=== PATIENT | female | born 1965 | race Caucasian/White ===

== ENCOUNTER 2018-07-20 10:41 | Emergency (ER) | payer MEDICAID ==
[~2018-07-20] VITALS: Ht 147.3 cm; Wt 98.0 kg
[~2018-07-20 10:41] MED LIST: ALPR-624 PO; ATROVENT HFA NEB; CYCL-1 PO; LEVO137T2 PO; LISI40TA4 PO; OXYC30TA88 PO; OXYGEN; SERT50TA PO; TEMA30CA5 PO; TRIA15CR61 TP; [UNRECOGNIZED DRUG - CODE] PO
[2018-07-20 11:01] VITALS: BP 175/88
[2018-07-20] MEDS ORDERED: GABA-532 PO (11:44)
[2018-07-20] MEDS ORDERED: ONDA4TAB6 PO (11:44)
== END 2018-07-20 11:58 | disposition home or self-care (01) ==
LOC: ER 10:41
DX: F11.20 Opioid dependence, uncomplicated (principal); Z76.0 Encounter for issue of repeat prescription; I10 Essential (primary) hypertension; J44.9 Chronic obstructive pulmonary disease, unspecified
CPT/HCPCS: 99283

== ENCOUNTER 2019-06-20 17:21 | Emergency (ER) | payer MEDICAID ==
[~2019-06-20] VITALS: Ht 147.3 cm; Wt 97.7 kg
[~2019-06-20 17:21] MED LIST changes: +GABA-532 PO; +ONDA4TAB6 PO
[2019-06-20 17:29] VITALS: BP 142/92
[2019-06-20] MEDS ORDERED: ipratropium/albuterol 3ml nebule NEB ONE (17:40)
[2019-06-20] MEDS ORDERED: methylPREDNISolone sod succ 125mg/2ml vial IV ONE (17:40)
[2019-06-20] MEDS ORDERED: AZIT250T81 PO (17:47)
[2019-06-20] MEDS ORDERED: PRED10TA23 PO (17:47)
== END 2019-06-20 18:43 | disposition home or self-care (01) ==
LOC: ER 17:22
DX: J44.1 Chronic obstructive pulmonary disease with (acute) exacerbation (principal); I10 Essential (primary) hypertension; Z79.899 Other long term (current) drug therapy
CPT/HCPCS: 94640; 96374; 99283; J2930; 94760

== ENCOUNTER 2020-03-22 18:29 | Inpatient (IN) | payer MEDICAID ==
[~2020-03-22] VITALS: Ht 162.6 cm; Wt 100.0 kg
[~2020-03-22 18:29] MED LIST changes: +OXYC30TA PO; -OXYC30TA88 PO
[2020-03-22] MEDS ORDERED: normal saline 1000ML IV soln IVB ONE (18:50)
--- NOTE | 2020-03-22 19:26 | NUR ---
[facility] [phone]
[2020-03-22 19:30] LABS: ABG BASE EXCESS -3.1 mmol/L (-2.0-2.0); ABG HCO3 24.8 mmol/L (22.0-26.0); ABG OXYGEN SATURATION 91.4 % (94-97); ABG PCO2 (T) 59.4 mmHg (32.0-45.0); ABG PO2 (T) 68.9 mmHg (75.0-100.0); ALLEN'S TEST POSITIVE; FCOHb 3.4 % (0.0-3.9); FLOW 8 L/min; FMetHb 0.2 % (0.0-1.5); FO2Hb 88.1 % (94-97); PATIENT TEMPERATURE 38.1; TOTAL HEMOGLOBIN 13.8 G/dl (12.0-16.0)
[2020-03-22 19:49] LABS: BASOPHILS # (AUTO) 0.1 X10'3 (0-0.2); BASOPHILS % (AUTO) 0.7 % (0-1); EOSINOPHILS % (AUTO) 0 % (0-6); HEMATOCRIT 40.5 % (35.0-45.0); HEMOGLOBIN 13.3 g/dl (12.0-16.0); LYMPHOCYTES # (AUTO) 1.7 X10'3 (1.1-4.8); LYMPHOCYTES % (AUTO) 10.9 % (21-51); MEAN CORPUSCULAR HEMOGLOBIN 31.1 PG (27.0-31.0); MEAN CORPUSCULAR HGB CONC 32.8 g/dL (33.0-36.5); MEAN CORPUSCULAR VOLUME 94.8 FL (78-98); MEAN PLATELET VOLUME 7.8 FL (7.4-10.4); MONOCYTES % (AUTO) 6.2 % (2-12); NEUTROPHILS # (AUTO) 12.7 X10'3 (1.8-7.7); NEUTROPHILS % (AUTO) 82.2 % (42-75); PLATELET COUNT 256 X10'3 (140-440); RED BLOOD COUNT 4.27 X10'6 (4.20-5.60); RED CELL DISTRIBUTION WIDTH 14.8 % (11.5-14.5); WHITE BLOOD COUNT 15.4 X10'3 (4.5-11.0)
[2020-03-22 19:54] LABS: D-DIMER 1.44 MG/L FEU (0-0.50)
[2020-03-22 19:57] LABS: LACTIC SEPSIS 1.6 MMOL/L (0.4-2.0)
[2020-03-22 20:07] LABS: ALANINE AMINOTRANSFERASE 173 U/L (12-78); ALBUMIN 3.6 G/DL (3.4-5.0); ALBUMIN/GLOBULIN RATIO 0.8 (1.1-1.5); ALKALINE PHOSPHATASE 135 IU/L (46-116); ANION GAP 7 (8-16); ASPARTATE AMINO TRANSFERASE 252 U/L (10-37); BILIRUBIN,TOTAL 0.3 MG/DL (0.1-1.0); BLOOD UREA NITROGEN 35 MG/DL (7-18); BUN/CREATININE RATIO 14.3 (6.6-38.0); CALCIUM 9.3 MG/DL (8.5-10.1); CHLORIDE 104 MMOL/L (99-107); CREATININE 2.45 MG/DL (0.40-0.90); FERRITIN 318 NG/ML (8-252); GLUCOSE 170 MG/DL (70-104); LACTATE DEHYDROGENASE 453 U/L (81-234); SODIUM 140 MMOL/L (135-145); TOTAL PROTEIN 8.4 G/DL (6.4-8.2); eGFR 20 ML/MIN
[2020-03-22] MEDS ORDERED: iohexol 350MG/ML 100ml bottle IV ONE (20:07)
[2020-03-22 20:12] LABS: ETHANOL < 0.010 GM/DL (0.0-0.010); POTASSIUM 6.2 MMOL/L (3.5-5.1)
[2020-03-22] MEDS ORDERED: insulin regular, human U-100 3ml vial - multi-dose IV ONE (20:20)
[2020-03-22] MEDS ORDERED: CALCIUM GLUC 1gm/50ml NACL,iso 50 ML IV ONE (20:20)
[2020-03-22] MEDS ORDERED: dextrose 50%-water 50ml dispensing syringe IV ONE (20:20)
[2020-03-22 20:30] LABS: CLARITY,URINE CLEAR (Clear); COLOR,URINE YELLOW (Yellow); GLUCOSE, URINE NEGATIVE (Neg); KETONES,URINE NEGATIVE (Neg); LEUKOCYTE ESTERASE ,URINE NEGATIVE (Neg); NITRITES, URINE NEGATIVE (Neg); OCCULT BLOOD,URINE LARGE (Neg); PH,URINE 5.5 (4.8-8.0); PROTEIN,URINE 30 mg/dl (Neg); UROBILINOGEN,URINE 0.2 E.U/dL (0.2-1.0)
[2020-03-22 20:38] LABS: UA COLLECTION TYPE FOLEY CATH
[2020-03-22 20:39] LABS: BACTERIA,URINE FEW /HPF (Neg); MUCUS STRANDS FEW /LPF (Neg); SQUAMOUS EPITHELIAL CELL,UR FEW /LPF (FEW); WBC,URINE 0-4 /HPF (0-4)
[2020-03-22 20:48] LABS: URINE AMPHETAMINE SCREEN NEGATIVE (Neg); URINE BARBITUATE SCREEN NEGATIVE (Neg); URINE BENZODIAZEPINES SCREEN NEGATIVE (Neg); URINE CANNABINOID SCREEN NEGATIVE (Neg); URINE COCAINE SCREEN NEGATIVE (Neg); URINE METHADONE SCREEN NEGATIVE (Neg); URINE OPIATE SCREEN POSITIVE (Neg); URINE PHENCYCLIDINE SCREEN NEGATIVE (Neg)
[2020-03-22 22:05] LABS: ABG BASE EXCESS -2.7 mmol/L (-2.0-2.0); ABG HCO3 25.9 mmol/L (22.0-26.0); ABG OXYGEN SATURATION 87.6 % (94-97); ABG PCO2 (T) 63.4 mmHg (32.0-45.0); ABG PO2 (T) 58.1 mmHg (75.0-100.0); ALLEN'S TEST POSITIVE; FLOW 4 L/min; FMetHb 0.1 % (0.0-1.5); FO2Hb 85.8 % (94-97); PATIENT TEMPERATURE 37.2; TOTAL HEMOGLOBIN 13.4 G/dl (12.0-16.0)
[2020-03-22] MEDS ORDERED: ondansetron/PF 4mg/2ml inj IV PRN (22:20)
[2020-03-22] MEDS ORDERED: normal saline 1000ml 1,000 ML IV SCH (22:20)
[2020-03-22 22:46] LABS: HEMOGLOBIN A1C 6.5 % (4.5-6.2)
[2020-03-22] MEDS: enoxaparin 40mg/0.4ml syringe SUBCUT SCH (23:10)
[2020-03-22] MEDS ORDERED: ALB0.5UD INH (23:33)
[2020-03-22] MEDS ORDERED: HYDR4TAB55 PO (23:33)
[2020-03-22] MEDS ORDERED: LOSA100T57 PO (23:33)
[2020-03-22] MEDS ORDERED: ASPI-1475 PO (23:33)
[2020-03-22] MEDS ORDERED: LEVO125T8 PO (23:33)
[2020-03-22] MEDS ORDERED: MORP-92 PO (23:33)
[2020-03-22] MEDS ORDERED: UMEC1DIS (23:33)
[2020-03-22] MEDS ORDERED: HYDR12.55 PO (23:33)
[2020-03-22] MEDS ORDERED: HYDR-3686 PO (23:33)
[2020-03-23] VITALS (8 sets, daily range): BP systolic 111–161; BP diastolic 53–100
[2020-03-23] MEDS ORDERED: acetaminophen 650mg rectal suppository RC ONE (00:30)
[2020-03-23] MEDS ORDERED: glucagon, human recombinant 1mg kit SUBCUT PRN (00:30)
[2020-03-23] MEDS ORDERED: MESSAGE TO PHARMACY PO ONE (00:30)
--- NOTE | 2020-03-23 00:30 | NUR ---
Patient in room PCU 3026. I have received report from Jerson SMITH and had the opportunity to ask questions and assume patient care.
[2020-03-23] MEDS: morphine 2 MG/ML inj. syringe IV PRN ×5 (05:43→19:55)
--- NOTE | 2020-03-23 05:45 | NUR ---
Patient needs sitter Patient is very impulsive, forgetful, and a danger to herself (pulling ortega, iv, bipap mask). MD Prakash called and received an order for sitter and to give 4mg Morphine if its time.
[2020-03-23 06:04] LABS: BASOPHILS # (AUTO) 0.1 X10'3 (0-0.2); BASOPHILS % (AUTO) 0.6 % (0-1); EOSINOPHILS % (AUTO) 0 % (0-6); HEMOGLOBIN 12.3 g/dl (12.0-16.0); LYMPHOCYTES # (AUTO) 2.1 X10'3 (1.1-4.8); LYMPHOCYTES % (AUTO) 12.1 % (21-51); MEAN CORPUSCULAR HEMOGLOBIN 30.5 PG (27.0-31.0); MEAN CORPUSCULAR HGB CONC 32.5 g/dL (33.0-36.5); MEAN CORPUSCULAR VOLUME 93.9 FL (78-98); MEAN PLATELET VOLUME 8.5 FL (7.4-10.4); MONOCYTES # (AUTO) 1.4 X10'3 (0-0.9); MONOCYTES % (AUTO) 8.1 % (2-12); NEUTROPHILS # (AUTO) 13.9 X10'3 (1.8-7.7); NEUTROPHILS % (AUTO) 79.2 % (42-75); PLATELET COUNT 230 X10'3 (140-440); RED BLOOD COUNT 4.04 X10'6 (4.20-5.60); RED CELL DISTRIBUTION WIDTH 14.6 % (11.5-14.5); WHITE BLOOD COUNT 17.6 X10'3 (4.5-11.0)
[2020-03-23 06:28] LABS: ALANINE AMINOTRANSFERASE 210 U/L (12-78); ALBUMIN 3.2 G/DL (3.4-5.0); ALBUMIN/GLOBULIN RATIO 0.8 (1.1-1.5); ALKALINE PHOSPHATASE 119 IU/L (46-116); ANION GAP 8 (8-16); ASPARTATE AMINO TRANSFERASE 368 U/L (10-37); BILIRUBIN,TOTAL 0.7 MG/DL (0.1-1.0); BLOOD UREA NITROGEN 32 MG/DL (7-18); BUN/CREATININE RATIO 19.6 (6.6-38.0); CALCIUM 9.7 MG/DL (8.5-10.1); CHLORIDE 108 MMOL/L (99-107); CHOL/HDL RATIO 3.5 (0.00-4.99); CHOLESTEROL 218 MG/DL (0-200); CREATININE 1.63 MG/DL (0.40-0.90); GLUCOSE 156 MG/DL (70-104); HDL CHOLESTEROL 63 MG/DL (35-60); LDL CHOLESTEROL 139 MG/DL (50-100); POTASSIUM 4.7 MMOL/L (3.5-5.1); SODIUM 142 MMOL/L (135-145); TOTAL CARBON DIOXIDE 26.2 MMOL/L (24-32); TOTAL PROTEIN 7.4 G/DL (6.4-8.2); TRIGLYCERIDES 127 MG/DL (20-135); eGFR 33 ML/MIN
--- NOTE | 2020-03-23 06:32 | NUR ---
Problems reprioritized. Patient report given, questions answered & plan of care reviewed with Kavya SMITH.
--- NOTE | 2020-03-23 06:42 | NUR ---
Patient in room PCU 3026. I have received report from LUIS Chen and had the opportunity to ask questions and assume patient care.
[2020-03-23] MEDS ORDERED: albuterol 2.5 MG/3 ML nebule NEB SCH (08:00)
[2020-03-23] MEDS ORDERED: potassium CL 10mEq/100ml bag 100 ML IV PRN (09:20)
[2020-03-23] MEDS ORDERED: magnesium 4gm in 100ml NS 100 ML IV PRN (09:20)
[2020-03-23] MEDS ORDERED: potassium Cl 20 mEq SR tablet PO PRN (09:20)
[2020-03-23] MEDS ORDERED: magnesium Cl slow-release 64mg tablet PO PRN (09:20)
[2020-03-23] MEDS ORDERED: levoTHYROXINE 125mcg tablet PO SCH (09:20)
[2020-03-23] MEDS: enoxaparin 40mg/0.4ml syringe SUBCUT SCH ×2 (09:40→19:44)
[2020-03-23] MEDS: atorvastatin 20mg tablet PO SCH (09:41)
[2020-03-23] MEDS: losartan 50mg tablet PO SCH (09:41)
[2020-03-23] MEDS: HYDROchlorothiazide 12.5mg capsule PO SCH (09:42)
[2020-03-23] MEDS: aspirin 81mg tablet.DR PO SCH (09:42)
[2020-03-23 10:20] LABS: MAGNESIUM 2.1 MG/DL (1.5-2.4)
--- NOTE | 2020-03-23 10:48 | NUR ---
Shady consult: Pt admitted with ALOC and was admit with CVA per H&P. Noted Shady of 11 pt documented with psoriasis on bilateral elbows, under bilateral breasts and under pannus along with blanchable sacrum per skin assessment, no apparent wounds. No [facility] assessment consult ordered at this time. Pt on pureed diet per [facility] s/p BSS, no documented intake since admit. Will continue to monitor for nutrient needs. Addendum: 03/23/20 at [address] Amended: Links added. Addendum: 03/23/20 at [address] I have reviewed and agree with note by Cell Installer. Philly Michael RD
[2020-03-23] MEDS: gabapentin 300mg capsule PO SCH ×2 (13:00→20:17)
--- NOTE | 2020-03-23 13:51 | NUR ---
Patient to go to [facility] for MRI. Will be accompanied by an RN and a tech and to transport by [facility]. Will be on nasal cannula 4L and O2 observed by RN.
--- NOTE | 2020-03-23 18:47 | NUR ---
Problems reprioritized. Patient report given, questions answered & plan of care reviewed with LUIS Chen.
[2020-03-23] MEDS: K and/or MAG REPLACEMENT MC SCH (20:00)
[2020-03-23] MEDS: NYSTATIN CREAM - 30GM TUBE TP SCH (20:09)
[2020-03-23] MEDS ORDERED: methylPREDNISolone sod succ 125mg/2ml vial IV ONE (22:25)
[2020-03-23] MEDS: ipratropium/albuterol 3ml nebule NEB SCH (23:43)
[2020-03-24] MEDS: methylPREDNISolone sod succ 125mg/2ml vial IV SCH ×4 (01:58→19:43)
[2020-03-24] MEDS: morphine 2 MG/ML inj. syringe IV PRN ×5 (01:59→21:57)
[2020-03-24 02:00] VITALS: BP 136/57
[2020-03-24] MEDS: ipratropium/albuterol 3ml nebule NEB SCH ×6 (04:03→23:36)
[2020-03-24 05:33] LABS: ANION GAP 4 (8-16); BLOOD UREA NITROGEN 21 MG/DL (7-18); BUN/CREATININE RATIO 21.4 (6.6-38.0); CHLORIDE 104 MMOL/L (99-107); CREATININE 0.98 MG/DL (0.40-0.90); GLUCOSE 192 MG/DL (70-104); POTASSIUM 4.5 MMOL/L (3.5-5.1); SODIUM 139 MMOL/L (135-145); TOTAL CARBON DIOXIDE 30.8 MMOL/L (24-32)
[2020-03-24 05:34] LABS: ALANINE AMINOTRANSFERASE 159 U/L (12-78); ALBUMIN 2.9 G/DL (3.4-5.0); ALBUMIN/GLOBULIN RATIO 0.6 (1.1-1.5); ALKALINE PHOSPHATASE 116 IU/L (46-116); ASPARTATE AMINO TRANSFERASE 214 U/L (10-37); BILIRUBIN,TOTAL 0.7 MG/DL (0.1-1.0); CALCIUM 8.8 MG/DL (8.5-10.1); PHOSPHORUS 1.8 MG/DL (2.3-4.5); TOTAL PROTEIN 7.6 G/DL (6.4-8.2); eGFR 59 ML/MIN
[2020-03-24 05:36] LABS: BASOPHILS % (AUTO) 0.3 % (0-1); EOSINOPHILS % (AUTO) 0 % (0-6); HEMATOCRIT 38.3 % (35.0-45.0); HEMOGLOBIN 12.4 g/dl (12.0-16.0); LYMPHOCYTES % (AUTO) 6.4 % (21-51); MEAN CORPUSCULAR HEMOGLOBIN 29.8 PG (27.0-31.0); MEAN CORPUSCULAR HGB CONC 32.4 g/dL (33.0-36.5); MEAN CORPUSCULAR VOLUME 91.9 FL (78-98); MEAN PLATELET VOLUME 8.3 FL (7.4-10.4); MONOCYTES # (AUTO) 0.3 X10'3 (0-0.9); MONOCYTES % (AUTO) 1.9 % (2-12); NEUTROPHILS # (AUTO) 14.5 X10'3 (1.8-7.7); NEUTROPHILS % (AUTO) 91.4 % (42-75); PLATELET COUNT 221 X10'3 (140-440); RED BLOOD COUNT 4.16 X10'6 (4.20-5.60); RED CELL DISTRIBUTION WIDTH 14.3 % (11.5-14.5); WHITE BLOOD COUNT 15.8 X10'3 (4.5-11.0)
[2020-03-24 06:00] VITALS: BP 127/57
--- NOTE | 2020-03-24 06:19 | NUR ---
Problems reprioritized. Patient report given, questions answered & plan of care reviewed with LUIS Hoff.
--- NOTE | 2020-03-24 06:29 | NUR ---
Patient in room PCU 3026. I have received report from LUIS Christensen and had the opportunity to ask questions and assume patient care.
[2020-03-24] MEDS ORDERED: levoTHYROXINE 100mcg tablet PO SCH (07:30)
[2020-03-24] MEDS: enoxaparin 40mg/0.4ml syringe SUBCUT SCH ×2 (07:35→19:44)
[2020-03-24] MEDS: aspirin 81mg tablet.DR PO SCH (07:36)
[2020-03-24] MEDS: losartan 50mg tablet PO SCH (07:37)
[2020-03-24] MEDS: gabapentin 300mg capsule PO SCH ×2 (07:38→12:37)
[2020-03-24] MEDS: HYDROchlorothiazide 12.5mg capsule PO SCH (07:38)
[2020-03-24] MEDS: atorvastatin 20mg tablet PO SCH (07:38)
[2020-03-24 07:42] LABS: HIV ANTIBODY 1&2 RAPID NON-REACTIVE (Neg)
[2020-03-24] MEDS: K and/or MAG REPLACEMENT MC SCH ×2 (08:00→20:00)
[2020-03-24] MEDS: NYSTATIN CREAM - 30GM TUBE TP SCH ×2 (08:00→19:44)
[2020-03-24] MEDS ORDERED: furosemide 40mg/4ml inj IV ONE (10:30)
[2020-03-24] MEDS: spironolactone 25 MG tablet PO SCH (12:38)
[2020-03-24] MEDS: insulin Lispro (HumaLOG) vial - multi-dose SQ SCH ×2 (13:31→19:46)
--- NOTE | 2020-03-24 14:12 | NUR ---
PAGER ID: [phone] MESSAGE: Deanna Shad [phone] her phos is 1.8, no replacement ordered, do you want me to replace? [facility] [phone]
[2020-03-24] MEDS ORDERED: sodium phosphate inj. 30 MMOL in dextrose 5%-water 250 ML IV ONE (14:30)
[2020-03-24 15:56] LABS: ABG BASE EXCESS 9.5 mmol/L (-2.0-2.0); ABG HCO3 32.7 mmol/L (22.0-26.0); ABG OXYGEN SATURATION 94.7 % (94-97); ABG PO2 (T) 64.6 mmHg (75.0-100.0); ALLEN'S TEST POSITIVE; FCOHb 0.4 % (0.0-3.9); FLOW 7 L/min; FMetHb 0.1 % (0.0-1.5); FO2Hb 94.2 % (94-97); TOTAL HEMOGLOBIN 14.5 G/dl (12.0-16.0)
[2020-03-24 18:00] VITALS: BP 135/72
[2020-03-24] MEDS: azithromycin/NS 500mg/250ml 250 ML IV SCH (18:58)
--- NOTE | 2020-03-24 19:03 | NUR ---
Problems reprioritized. Patient report given, questions answered & plan of care reviewed with Amparo SIMTH.
[2020-03-24] MEDS ORDERED: iohexol 350MG/ML 100ml bottle IV ONE (19:14)
[2020-03-24] MEDS: gabapentin 400mg capsule PO SCH (19:43)
[2020-03-24] MEDS: furosemide 40mg/4ml inj IV SCH (19:43)
[2020-03-24] MEDS ORDERED: enoxaparin 60mg/0.6ml syringe SUBCUT ONE (20:45)
--- NOTE | 2020-03-24 21:09 | NUR ---
Pt had teleneuro consult with Dr. Knapp. Pt was able to answer the questions the neurologist asked with clear speech. She was able to follow commands when asked.
[2020-03-24] MEDS: CefTRIAXone/D5W-Rocephin 1gm 50 ML IV SCH (21:58)
[2020-03-24 22:00] VITALS: BP 96/70
[2020-03-25] MEDS: methylPREDNISolone sod succ 125mg/2ml vial IV SCH ×4 (01:03→19:24)
[2020-03-25 02:00] VITALS: BP 101/52
[2020-03-25] MEDS: ipratropium/albuterol 3ml nebule NEB SCH ×6 (03:19→23:27)
[2020-03-25 06:00] VITALS: BP 115/87
[2020-03-25 06:01] LABS: BASOPHILS % (AUTO) 0.2 % (0-1); EOSINOPHILS % (AUTO) 0 % (0-6); HEMATOCRIT 42.5 % (35.0-45.0); HEMOGLOBIN 14.2 g/dl (12.0-16.0); LYMPHOCYTES # (AUTO) 1.3 X10'3 (1.1-4.8); LYMPHOCYTES % (AUTO) 8.1 % (21-51); MEAN CORPUSCULAR HEMOGLOBIN 30.6 PG (27.0-31.0); MEAN CORPUSCULAR HGB CONC 33.4 g/dL (33.0-36.5); MEAN CORPUSCULAR VOLUME 91.6 FL (78-98); MEAN PLATELET VOLUME 8.2 FL (7.4-10.4); MONOCYTES # (AUTO) 0.9 X10'3 (0-0.9); MONOCYTES % (AUTO) 5.6 % (2-12); NEUTROPHILS # (AUTO) 14.3 X10'3 (1.8-7.7); NEUTROPHILS % (AUTO) 86.1 % (42-75); PLATELET COUNT 268 X10'3 (140-440); RED BLOOD COUNT 4.64 X10'6 (4.20-5.60); RED CELL DISTRIBUTION WIDTH 13.8 % (11.5-14.5); WHITE BLOOD COUNT 16.6 X10'3 (4.5-11.0)
--- NOTE | 2020-03-25 06:21 | NUR ---
Patient in room PCU 3026. I have received report from LUIS Fleming and had the opportunity to ask questions and assume patient care.
--- NOTE | 2020-03-25 06:28 | NUR ---
Problems reprioritized. Patient report given, questions answered & plan of care reviewed with LUIS Villar.
[2020-03-25 06:35] LABS: ALANINE AMINOTRANSFERASE 132 U/L (12-78); ALBUMIN 3.2 G/DL (3.4-5.0); ALBUMIN/GLOBULIN RATIO 0.6 (1.1-1.5); ALKALINE PHOSPHATASE 115 IU/L (46-116); ANION GAP 11 (8-16); ASPARTATE AMINO TRANSFERASE 140 U/L (10-37); BILIRUBIN,TOTAL 0.6 MG/DL (0.1-1.0); BLOOD UREA NITROGEN 30 MG/DL (7-18); BUN/CREATININE RATIO 26.1 (6.6-38.0); CALCIUM 9.1 MG/DL (8.5-10.1); CHLORIDE 96 MMOL/L (99-107); CREATININE 1.15 MG/DL (0.40-0.90); GLUCOSE 205 MG/DL (70-104); MAGNESIUM 2.1 MG/DL (1.5-2.4); PHOSPHORUS 3.1 MG/DL (2.3-4.5); SODIUM 141 MMOL/L (135-145); TOTAL CARBON DIOXIDE 33.6 MMOL/L (24-32); TOTAL PROTEIN 8.3 G/DL (6.4-8.2); eGFR 49 ML/MIN
--- NOTE | 2020-03-25 06:46 | NUR ---
Notified RN of K of 3.0
[2020-03-25] MEDS: CefTRIAXone/D5W-Rocephin 1gm 50 ML IV SCH (07:52)
[2020-03-25] MEDS: gabapentin 400mg capsule PO SCH ×2 (07:53→19:23)
[2020-03-25] MEDS: aspirin 81mg tablet.DR PO SCH (07:53)
[2020-03-25] MEDS: losartan 50mg tablet PO SCH (07:56)
[2020-03-25] MEDS: atorvastatin 20mg tablet PO SCH (07:57)
[2020-03-25] MEDS: HYDROchlorothiazide 12.5mg capsule PO SCH (07:57)
[2020-03-25] MEDS: levoTHYROXINE 25mcg tablet PO SCH (07:57)
[2020-03-25] MEDS: potassium Cl 20 mEq SR tablet PO PRN ×2 (07:58→19:30)
[2020-03-25] MEDS: K and/or MAG REPLACEMENT MC SCH ×2 (08:00→20:00)
[2020-03-25] MEDS: enoxaparin 100mg/ml syringe SUBCUT SCH ×2 (08:05→19:24)
[2020-03-25] MEDS: spironolactone 25 MG tablet PO SCH (08:07)
[2020-03-25] MEDS: NYSTATIN CREAM - 30GM TUBE TP SCH ×2 (08:07→19:28)
[2020-03-25] MEDS: furosemide 40mg/4ml inj IV SCH ×2 (08:28→19:24)
--- NOTE | 2020-03-25 09:19 | NUR ---
PT requested morphine. PT did not have an IV. Placed new IV. Morphine spilled. Notified charge, pharmacognosist and pharmacist to be able to pull out another medication
[2020-03-25] MEDS: azithromycin/NS 500mg/250ml 250 ML IV SCH (09:32)
[2020-03-25] MEDS: morphine 2 MG/ML inj. syringe IV PRN ×2 (09:33→19:25)
[2020-03-25] MEDS: insulin Lispro (HumaLOG) vial - multi-dose SQ SCH ×2 (09:37→14:35)
[2020-03-25 11:00] VITALS: BP 101/67
--- NOTE | 2020-03-25 11:03 | NUR ---
PAGER ID: [phone] MESSAGE: [id number]: Deanna Kulkarni: ARAMIS critical 3.0 K+, [facility] Aurea [phone]
[2020-03-25 12:01] LABS: HBSAG SCREEN Negative (Negative); HEP A AB, IGM Negative (Negative); HEPATITIS C ANTIBODY <0.1 s/co ratio (0.0-0.9)
--- NOTE | 2020-03-25 12:10 | NUR ---
Per Kady, place another tele neuro consult without another repeat MRI. MRI from [facility] needs to be faxed to neurologist for review.
--- NOTE | 2020-03-25 13:10 | NUR ---
New orders from Kady to place pt on CC diet and discontinue Bipap order
--- NOTE | 2020-03-25 14:16 | NUR ---
PAGER ID: [phone] MESSAGE: [id number]: Deanna Kulkarni: Trop 2.10, [facility] [phone]
[2020-03-25 15:00] VITALS: BP_SYST 115; BP_SYST 96; BP_DIAS 76; BP_DIAS 87
[2020-03-25 18:00] VITALS: BP 100/58
[2020-03-25] MEDS ORDERED: diltiazem CD 180mg cap (once-daily) PO ONE (18:00)
--- NOTE | 2020-03-25 18:11 | NUR ---
Problems reprioritized. Patient report given, questions answered & plan of care reviewed with LUIS Elder.
[2020-03-25] MEDS: lactobacillus rhamnosus 10,000 MMU CELLS/CAPSULE PO SCH (19:23)
[2020-03-25] MEDS ORDERED: regadenoson 0.4mg/5ml syringe IV PRN (20:55)
[2020-03-25 22:00] VITALS: BP 108/44
[2020-03-26] VITALS (11 sets, daily range): BP systolic 95–129; BP diastolic 38–54
[2020-03-26] MEDS: methylPREDNISolone sod succ 125mg/2ml vial IV SCH ×4 (01:15→20:44)
[2020-03-26] MEDS: morphine 2 MG/ML inj. syringe IV PRN ×4 (01:17→20:45)
[2020-03-26 03:08] LABS: ALANINE AMINOTRANSFERASE 104 U/L (12-78); ALBUMIN 3.1 G/DL (3.4-5.0); ALBUMIN/GLOBULIN RATIO 0.6 (1.1-1.5); ALKALINE PHOSPHATASE 103 IU/L (46-116); ANION GAP 10 (8-16); ASPARTATE AMINO TRANSFERASE 96 U/L (10-37); BILIRUBIN,TOTAL 0.6 MG/DL (0.1-1.0); BLOOD UREA NITROGEN 39 MG/DL (7-18); BUN/CREATININE RATIO 31.2 (6.6-38.0); CALCIUM 8.6 MG/DL (8.5-10.1); CHLORIDE 98 MMOL/L (99-107); CREATININE 1.25 MG/DL (0.40-0.90); GLUCOSE 208 MG/DL (70-104); POTASSIUM 3.4 MMOL/L (3.5-5.1); SODIUM 141 MMOL/L (135-145); TOTAL CARBON DIOXIDE 33.2 MMOL/L (24-32); TOTAL PROTEIN 7.9 G/DL (6.4-8.2); eGFR 44 ML/MIN
[2020-03-26 03:11] LABS: MAGNESIUM 2.2 MG/DL (1.5-2.4); PHOSPHORUS 3.3 MG/DL (2.3-4.5)
[2020-03-26] MEDS: ipratropium/albuterol 3ml nebule NEB SCH ×6 (03:49→23:27)
[2020-03-26 06:02] LABS: BASOPHILS % (AUTO) 0.2 % (0-1); EOSINOPHILS % (AUTO) 0 % (0-6); HEMOGLOBIN 14.3 g/dl (12.0-16.0); LYMPHOCYTES # (AUTO) 1.2 X10'3 (1.1-4.8); LYMPHOCYTES % (AUTO) 8.4 % (21-51); MEAN CORPUSCULAR HEMOGLOBIN 30.6 PG (27.0-31.0); MEAN CORPUSCULAR HGB CONC 33.3 g/dL (33.0-36.5); MEAN CORPUSCULAR VOLUME 91.9 FL (78-98); MEAN PLATELET VOLUME 8.2 FL (7.4-10.4); MONOCYTES # (AUTO) 0.9 X10'3 (0-0.9); MONOCYTES % (AUTO) 5.8 % (2-12); NEUTROPHILS # (AUTO) 12.7 X10'3 (1.8-7.7); NEUTROPHILS % (AUTO) 85.6 % (42-75); PLATELET COUNT 277 X10'3 (140-440); RED BLOOD COUNT 4.68 X10'6 (4.20-5.60); RED CELL DISTRIBUTION WIDTH 13.9 % (11.5-14.5); WHITE BLOOD COUNT 14.8 X10'3 (4.5-11.0)
--- NOTE | 2020-03-26 06:30 | NUR ---
Patient in room PCU 3026. I have received report from LUIS Elder and had the opportunity to ask questions and assume patient care.
[2020-03-26] MEDS: CefTRIAXone/D5W-Rocephin 1gm 50 ML IV SCH (07:16)
[2020-03-26] MEDS: enoxaparin 100mg/ml syringe SUBCUT SCH ×2 (07:27→20:42)
[2020-03-26] MEDS: gabapentin 400mg capsule PO SCH ×2 (07:28→20:44)
[2020-03-26] MEDS: lactobacillus rhamnosus 10,000 MMU CELLS/CAPSULE PO SCH ×2 (07:28→20:44)
[2020-03-26] MEDS: aspirin 81mg tablet.DR PO SCH (07:28)
[2020-03-26] MEDS: levoTHYROXINE 25mcg tablet PO SCH (07:28)
[2020-03-26] MEDS: HYDROchlorothiazide 12.5mg capsule PO SCH (07:29)
[2020-03-26] MEDS: furosemide 40mg/4ml inj IV SCH ×2 (07:29→20:44)
[2020-03-26] MEDS: atorvastatin 20mg tablet PO SCH (07:29)
[2020-03-26] MEDS: K and/or MAG REPLACEMENT MC SCH ×3 (07:29→20:00)
[2020-03-26] MEDS: losartan 50mg tablet PO SCH (07:29)
[2020-03-26] MEDS: NYSTATIN CREAM - 30GM TUBE TP SCH ×2 (07:30→20:46)
[2020-03-26] MEDS: spironolactone 25 MG tablet PO SCH (07:49)
--- NOTE | 2020-03-26 12:23 | NUR ---
PAGER ID: [phone] MESSAGE: [id number]: Deanna Kulkarni: Per heat treatment technician pt + for DVT behind left leg & calf -Aurea [phone]
--- NOTE | 2020-03-26 13:15 | NUR ---
New orders from andrea for 3.125mg BID, hold SBP <100
--- NOTE | 2020-03-26 13:58 | NUR ---
PAGER ID: [phone] MESSAGE: [id number]: Deanna Kulkarni - Kalli I have orders for K+ and Mg2+ replacements? thank you - Aurea [phone]
--- NOTE | 2020-03-26 14:02 | NUR ---
PAGER ID: [phone] MESSAGE: [id number]: Deanna Kulkarni - Kalli I have orders for K+ and Mg2+ replacements? thank you - Aurea [phone]
[2020-03-26] MEDS ORDERED: magnesium Cl slow-release 64mg tablet PO PRN (14:05)
[2020-03-26] MEDS ORDERED: potassium CL 10mEq/100ml bag 100 ML IV PRN (14:05)
[2020-03-26] MEDS ORDERED: magnesium 4gm in 100ml NS 100 ML IV PRN (14:05)
[2020-03-26] MEDS ORDERED: potassium Cl 20 mEq SR tablet PO PRN (14:05)
[2020-03-26] MEDS: insulin Lispro (HumaLOG) vial - multi-dose SQ SCH (14:12)
[2020-03-26] MEDS: potassium Cl 20 mEq SR tablet PO PRN ×2 (16:35→20:44)
--- NOTE | 2020-03-26 18:30 | NUR ---
Problems reprioritized. Patient report given, questions answered & plan of care reviewed with LUIS Hoff.
[2020-03-26] MEDS: carVEDilol 3.125mg tablet PO SCH (20:44)
[2020-03-27] MEDS: ipratropium/albuterol 3ml nebule NEB SCH ×6 (03:06→23:00)
[2020-03-27 05:38] LABS: BASOPHILS # (AUTO) 0.1 X10'3 (0-0.2); BASOPHILS % (AUTO) 0.4 % (0-1); EOSINOPHILS % (AUTO) 0 % (0-6); HEMATOCRIT 44.5 % (35.0-45.0); HEMOGLOBIN 14.6 g/dl (12.0-16.0); LYMPHOCYTES # (AUTO) 1.2 X10'3 (1.1-4.8); LYMPHOCYTES % (AUTO) 8.2 % (21-51); MEAN CORPUSCULAR HEMOGLOBIN 29.9 PG (27.0-31.0); MEAN CORPUSCULAR HGB CONC 32.9 g/dL (33.0-36.5); MEAN CORPUSCULAR VOLUME 90.9 FL (78-98); MEAN PLATELET VOLUME 8.4 FL (7.4-10.4); MONOCYTES # (AUTO) 1.2 X10'3 (0-0.9); MONOCYTES % (AUTO) 7.8 % (2-12); NEUTROPHILS # (AUTO) 12.5 X10'3 (1.8-7.7); NEUTROPHILS % (AUTO) 83.6 % (42-75); PLATELET COUNT 336 X10'3 (140-440); RED CELL DISTRIBUTION WIDTH 14.2 % (11.5-14.5); WHITE BLOOD COUNT 14.9 X10'3 (4.5-11.0)
[2020-03-27 05:44] LABS: ALANINE AMINOTRANSFERASE 82 U/L (12-78); ALBUMIN 3.4 G/DL (3.4-5.0); ALBUMIN/GLOBULIN RATIO 0.7 (1.1-1.5); ALKALINE PHOSPHATASE 97 IU/L (46-116); ANION GAP 13 (8-16); ASPARTATE AMINO TRANSFERASE 62 U/L (10-37); BILIRUBIN,TOTAL 0.9 MG/DL (0.1-1.0); BLOOD UREA NITROGEN 52 MG/DL (7-18); BUN/CREATININE RATIO 37.7 (6.6-38.0); CALCIUM 8.6 MG/DL (8.5-10.1); CHLORIDE 96 MMOL/L (99-107); CREATININE 1.38 MG/DL (0.40-0.90); GLUCOSE 241 MG/DL (70-104); MAGNESIUM 2.3 MG/DL (1.5-2.4); PHOSPHORUS 3.5 MG/DL (2.3-4.5); POTASSIUM 3.4 MMOL/L (3.5-5.1); SODIUM 140 MMOL/L (135-145); TOTAL CARBON DIOXIDE 31.4 MMOL/L (24-32); eGFR 40 ML/MIN
[2020-03-27 06:00] VITALS: BP 123/53
--- NOTE | 2020-03-27 06:25 | NUR ---
Problems reprioritized. Patient report given, questions answered & plan of care reviewed with Kathrin SMITH.
--- NOTE | 2020-03-27 06:33 | NUR ---
Patient in room PCU 3026. I have received report from Kavya and had the opportunity to ask questions and assume patient care.
[2020-03-27] MEDS: CefTRIAXone/D5W-Rocephin 1gm 50 ML IV SCH (08:00)
[2020-03-27] MEDS: K and/or MAG REPLACEMENT MC SCH ×4 (08:00→19:25)
[2020-03-27] MEDS: levoTHYROXINE 25mcg tablet PO SCH (08:05)
[2020-03-27] MEDS: methylPREDNISolone sod succ 125mg/2ml vial IV SCH ×2 (08:06→19:20)
[2020-03-27] MEDS: furosemide 40mg/4ml inj IV SCH ×3 (08:06→19:36)
[2020-03-27] MEDS: aspirin 81mg tablet.DR PO SCH (08:07)
[2020-03-27] MEDS: carVEDilol 3.125mg tablet PO SCH ×2 (08:07→19:27)
[2020-03-27] MEDS: losartan 50mg tablet PO SCH (08:07)
[2020-03-27] MEDS: lactobacillus rhamnosus 10,000 MMU CELLS/CAPSULE PO SCH ×2 (08:07→19:19)
[2020-03-27] MEDS: atorvastatin 20mg tablet PO SCH (08:08)
[2020-03-27] MEDS: gabapentin 400mg capsule PO SCH ×2 (08:08→19:20)
[2020-03-27] MEDS: enoxaparin 100mg/ml syringe SUBCUT SCH ×2 (08:08→19:28)
[2020-03-27] MEDS: HYDROchlorothiazide 12.5mg capsule PO SCH (08:08)
[2020-03-27] MEDS: spironolactone 25 MG tablet PO SCH (08:09)
[2020-03-27] MEDS: insulin Lispro (HumaLOG) vial - multi-dose SQ SCH ×3 (10:05→18:31)
[2020-03-27] MEDS: potassium Cl 20 mEq SR tablet PO PRN ×3 (10:07→19:29)
[2020-03-27] MEDS: morphine 2 MG/ML inj. syringe IV PRN ×2 (10:07→17:49)
[2020-03-27 11:00] VITALS: BP 109/45
[2020-03-27 15:00] VITALS: BP 101/69
[2020-03-27] MEDS: NYSTATIN CREAM - 30GM TUBE TP SCH ×2 (15:02→19:28)
--- NOTE | 2020-03-27 15:09 | NUR ---
Initial: Pt admit with CVA. Pt noted to have bilat pulmonary embolisms and with hx CHF with EF 20-25% per MD note. Pt s/p BSS initially put on pureed diet however diet advanced by ST 03/26 after f/u BSS to mechanical soft chop all heart healthy CHO controlled diet with thin liquids. Pt continues with 0-25% PO intake with meal refusals throughout LOS not meeting estimated nutrient needs. Pt A/O x 2 and confused with a sitter at bedside and documented to be receiving minimum assistance with meals. Pt receiving a sippy cup and adaptive-stout with meals per dietary. Pt would benefit from diet liberalization to regular with texture modifications per ST recs given poor PO intake and A1c 6.5%. D/w dietary to trial yogurt with breakfast and cottage cheese with lunch to optimize PO intake. [facility] 03/26. Will continue to follow closely. Recommendations: 1) Consider diet liberalization to regular with texture modification per ST recs given poor PO intake throughout LOS and A1c 6.5% 2) Trial yogurt q breakfast and cottage cheese q lunch; monitor appropriateness for ONS 3) Adaptive stout and sippy cup with meals; Assist with meals given ALOC 4) Bowel care per rx 5) Scaled weights per rx Addendum: 03/27/20 at [address] Amended: Links added.
[2020-03-27 18:00] VITALS: BP 106/59
--- NOTE | 2020-03-27 18:03 | NUR ---
Problems reprioritized. Patient report given, questions answered & plan of care reviewed with Aishwarya.
--- NOTE | 2020-03-27 18:13 | NUR ---
Patient in room PCU 3027. I have received report from Kathrin SMITH and had the opportunity to ask questions and assume patient care.
[2020-03-27] MEDS: HYDROcodone/acetaminophen 5mg/325mg tablet PO PRN (21:58)
[2020-03-27 22:00] VITALS: BP 105/60
[2020-03-28 02:00] VITALS: BP 125/53
[2020-03-28] MEDS: HYDROcodone/acetaminophen 5mg/325mg tablet PO PRN ×5 (03:03→22:19)
[2020-03-28] MEDS: ipratropium/albuterol 3ml nebule NEB SCH ×6 (03:06→23:00)
[2020-03-28 05:55] LABS: BASOPHILS % (AUTO) 0.2 % (0-1); EOSINOPHILS % (AUTO) 0.1 % (0-6); HEMATOCRIT 44.7 % (35.0-45.0); LYMPHOCYTES # (AUTO) 2.1 X10'3 (1.1-4.8); LYMPHOCYTES % (AUTO) 11.4 % (21-51); MEAN CORPUSCULAR HEMOGLOBIN 30.6 PG (27.0-31.0); MEAN CORPUSCULAR HGB CONC 33.5 g/dL (33.0-36.5); MEAN CORPUSCULAR VOLUME 91.4 FL (78-98); MEAN PLATELET VOLUME 8.8 FL (7.4-10.4); MONOCYTES # (AUTO) 1.4 X10'3 (0-0.9); MONOCYTES % (AUTO) 7.6 % (2-12); NEUTROPHILS # (AUTO) 14.8 X10'3 (1.8-7.7); NEUTROPHILS % (AUTO) 80.7 % (42-75); PLATELET COUNT 316 X10'3 (140-440); RED BLOOD COUNT 4.89 X10'6 (4.20-5.60); RED CELL DISTRIBUTION WIDTH 13.8 % (11.5-14.5); WHITE BLOOD COUNT 18.4 X10'3 (4.5-11.0)
[2020-03-28 06:19] LABS: ALANINE AMINOTRANSFERASE 66 U/L (12-78); ALBUMIN 3.3 G/DL (3.4-5.0); ALBUMIN/GLOBULIN RATIO 0.7 (1.1-1.5); ALKALINE PHOSPHATASE 90 IU/L (46-116); ANION GAP 11 (8-16); BILIRUBIN,TOTAL 0.9 MG/DL (0.1-1.0); BLOOD UREA NITROGEN 62 MG/DL (7-18); BUN/CREATININE RATIO 47.7 (6.6-38.0); CHLORIDE 97 MMOL/L (99-107); GLUCOSE 184 MG/DL (70-104); MAGNESIUM 2.4 MG/DL (1.5-2.4); SODIUM 137 MMOL/L (135-145); TOTAL PROTEIN 7.8 G/DL (6.4-8.2); eGFR 42 ML/MIN
[2020-03-28 06:21] LABS: ASPARTATE AMINO TRANSFERASE 56 U/L (10-37); PHOSPHORUS 4.4 MG/DL (2.3-4.5)
--- NOTE | 2020-03-28 06:22 | NUR ---
Problems reprioritized. Patient report given, questions answered & plan of care reviewed with Radha SMITH.
--- NOTE | 2020-03-28 06:26 | NUR ---
Patient in room PCU 3027. I have received report from Aishwarya SMITH and had the opportunity to ask questions and assume patient care.
[2020-03-28 07:00] VITALS: BP 129/45
[2020-03-28] MEDS: NYSTATIN CREAM - 30GM TUBE TP SCH ×2 (07:37→19:29)
[2020-03-28] MEDS: HYDROchlorothiazide 12.5mg capsule PO SCH (07:37)
[2020-03-28] MEDS: prednisone 10mg tablet PO SCH (07:37)
[2020-03-28] MEDS: spironolactone 25 MG tablet PO SCH (07:37)
[2020-03-28] MEDS: enoxaparin 100mg/ml syringe SUBCUT SCH ×2 (07:37→19:24)
[2020-03-28] MEDS: atorvastatin 20mg tablet PO SCH (07:37)
[2020-03-28] MEDS: losartan 50mg tablet PO SCH (07:38)
[2020-03-28] MEDS: lactobacillus rhamnosus 10,000 MMU CELLS/CAPSULE PO SCH ×2 (07:38→19:21)
[2020-03-28] MEDS: furosemide 40mg tablet PO SCH ×2 (07:38→19:34)
[2020-03-28] MEDS: levoTHYROXINE 25mcg tablet PO SCH (07:39)
[2020-03-28] MEDS: gabapentin 400mg capsule PO SCH ×2 (07:39→19:20)
[2020-03-28] MEDS: carVEDilol 3.125mg tablet PO SCH ×2 (07:39→19:34)
[2020-03-28] MEDS: aspirin 81mg tablet.DR PO SCH (07:39)
[2020-03-28] MEDS: CefTRIAXone 1000mg IM Kit (w/lidocaine diluent) IM SCH (07:45)
[2020-03-28] MEDS: K and/or MAG REPLACEMENT MC SCH ×4 (08:00→20:00)
[2020-03-28] MEDS: insulin Lispro (HumaLOG) vial - multi-dose SQ SCH ×2 (08:53→19:28)
[2020-03-28 11:00] VITALS: BP 112/53
[2020-03-28 18:00] VITALS: BP 120/66
--- NOTE | 2020-03-28 18:28 | NUR ---
Problems reprioritized. Patient report given, questions answered & plan of care reviewed with Cash RN and Wilfredo SMITH.
[2020-03-28] MEDS: morphine ER 15mg tablet PO SCH (19:21)
--- NOTE | 2020-03-28 19:35 | NUR ---
FARHAD HELD bp98/66 hr 66 held for paramaters
--- NOTE | 2020-03-28 20:32 | NUR ---
NOTIFIED PAGER ID: [phone] MESSAGE: [id number] Deannadmitriy Kulkarni NO YOVANYTELMA CERONE can we get one? level 6 protocol am bs 182 dinner bs was 198 BUN 62 personal banking officer 1.3 gfr 42
[2020-03-28] MEDS ORDERED: insulin glargine (Lantus) pen - multi-dose SQ SCH (21:00)
[2020-03-28 22:00] VITALS: BP 101/42
--- NOTE | 2020-03-29 00:38 | NUR ---
NOTIFIED PAGER ID: [phone] MESSAGE: [id number] hypotensive post fall currently 70s systolic in Trendelenburg, 250 NS bolus running, pt mentation unchanged but sleepy, additional home morphine on board jairon jimenez [phone]
[2020-03-29] MEDS ORDERED: normal saline 1000ml 1,000 ML IV ONE (01:05)
[2020-03-29 02:00] VITALS: BP 102/84
[2020-03-29] MEDS: ipratropium/albuterol 3ml nebule NEB SCH ×3 (03:00→11:05)
[2020-03-29] MEDS: HYDROcodone/acetaminophen 5mg/325mg tablet PO PRN (04:55)
--- NOTE | 2020-03-29 05:15 | NUR ---
Patient in room PCU 3027. I have received report from Radha SMITH and had the opportunity to ask questions and assume patient care.
[2020-03-29 05:35] LABS: BASOPHILS # (AUTO) 0.1 X10'3 (0-0.2); BASOPHILS % (AUTO) 0.4 % (0-1); EOSINOPHILS # (AUTO) 0.2 X10'3 (0-0.9); EOSINOPHILS % (AUTO) 1.1 % (0-6); HEMATOCRIT 43.7 % (35.0-45.0); HEMOGLOBIN 14.5 g/dl (12.0-16.0); LYMPHOCYTES # (AUTO) 4.9 X10'3 (1.1-4.8); LYMPHOCYTES % (AUTO) 20.9 % (21-51); MEAN CORPUSCULAR HEMOGLOBIN 29.9 PG (27.0-31.0); MEAN CORPUSCULAR HGB CONC 33.1 g/dL (33.0-36.5); MEAN CORPUSCULAR VOLUME 90.3 FL (78-98); MEAN PLATELET VOLUME 8.6 FL (7.4-10.4); MONOCYTES # (AUTO) 1.7 X10'3 (0-0.9); MONOCYTES % (AUTO) 7.2 % (2-12); NEUTROPHILS # (AUTO) 16.4 X10'3 (1.8-7.7); NEUTROPHILS % (AUTO) 70.4 % (42-75); PLATELET COUNT 289 X10'3 (140-440); RED BLOOD COUNT 4.84 X10'6 (4.20-5.60); RED CELL DISTRIBUTION WIDTH 13.9 % (11.5-14.5); WHITE BLOOD COUNT 23.3 X10'3 (4.5-11.0)
[2020-03-29 05:58] LABS: ALANINE AMINOTRANSFERASE 119 U/L (12-78); ALBUMIN 3.1 G/DL (3.4-5.0); ALBUMIN/GLOBULIN RATIO 0.8 (1.1-1.5); ALKALINE PHOSPHATASE 88 IU/L (46-116); ANION GAP 9 (8-16); ASPARTATE AMINO TRANSFERASE 106 U/L (10-37); BILIRUBIN,TOTAL 0.8 MG/DL (0.1-1.0); BLOOD UREA NITROGEN 65 MG/DL (7-18); BUN/CREATININE RATIO 48.5 (6.6-38.0); CALCIUM 8.3 MG/DL (8.5-10.1); CHLORIDE 96 MMOL/L (99-107); CREATININE 1.34 MG/DL (0.40-0.90); GLUCOSE 137 MG/DL (70-104); MAGNESIUM 2.5 MG/DL (1.5-2.4); POTASSIUM 3.1 MMOL/L (3.5-5.1); SODIUM 135 MMOL/L (135-145); TOTAL CARBON DIOXIDE 29.7 MMOL/L (24-32); TOTAL PROTEIN 7.2 G/DL (6.4-8.2); eGFR 41 ML/MIN
--- NOTE | 2020-03-29 06:17 | NUR ---
Problems reprioritized. Patient report given, questions answered & plan of care reviewed with Radha SMITH.
--- NOTE | 2020-03-29 06:18 | NUR ---
I have reviewed Wilfredo SMITH charting and I agree.
--- NOTE | 2020-03-29 06:46 | NUR ---
Patient in room PCU 3027. I have received report from Cash RN and Wilfredo SMITH and had the opportunity to ask questions and assume patient care.
[2020-03-29 07:00] VITALS: BP 90/67
[2020-03-29] MEDS: carVEDilol 3.125mg tablet PO SCH (07:08)
[2020-03-29] MEDS: furosemide 40mg tablet PO SCH (07:08)
[2020-03-29] MEDS: K and/or MAG REPLACEMENT MC SCH ×2 (07:10)
[2020-03-29] MEDS: losartan 50mg tablet PO SCH (08:00)
[2020-03-29] MEDS: HYDROchlorothiazide 12.5mg capsule PO SCH (08:00)
[2020-03-29 08:30] VITALS: BP_SYST 90
[2020-03-29] MEDS: spironolactone 25 MG tablet PO SCH (08:30)
[2020-03-29] MEDS: NYSTATIN CREAM - 30GM TUBE TP SCH (08:33)
[2020-03-29] MEDS: gabapentin 400mg capsule PO SCH (08:33)
[2020-03-29] MEDS: prednisone 10mg tablet PO SCH (08:33)
[2020-03-29] MEDS: atorvastatin 20mg tablet PO SCH (08:33)
[2020-03-29] MEDS: aspirin 81mg tablet.DR PO SCH (08:33)
[2020-03-29] MEDS: enoxaparin 100mg/ml syringe SUBCUT SCH (08:33)
[2020-03-29] MEDS: CefTRIAXone 1000mg IM Kit (w/lidocaine diluent) IM SCH (08:33)
[2020-03-29] MEDS: lactobacillus rhamnosus 10,000 MMU CELLS/CAPSULE PO SCH (08:34)
[2020-03-29] MEDS: levoTHYROXINE 25mcg tablet PO SCH (08:36)
[2020-03-29] MEDS: morphine ER 15mg tablet PO SCH (09:45)
[2020-03-29 09:48] LABS: PLATELET ESTIMATE NORMAL; SMUDGE CELLS 1+; TOTAL CELLS COUNTED 100
[2020-03-29] MEDS ORDERED: ATOR20TA66 PO (10:56)
[2020-03-29] MEDS ORDERED: COR3.125T PO (10:56)
[2020-03-29] MEDS ORDERED: IPRA3AMP9 NEB (10:56)
[2020-03-29] MEDS ORDERED: ENOX100S3 SUBCUT (11:07)
[2020-03-29] MEDS ORDERED: SPIR25TA PO (11:07)
[2020-03-29] MEDS ORDERED: PANT-47 PO (11:07)
[2020-03-29] MEDS ORDERED: LEVO25TA7 PO (11:07)
[2020-03-29] MEDS ORDERED: PRED10TA PO (11:07)
--- NOTE | 2020-03-29 12:26 | NUR ---
Patient stable for discharge per MD order. All necessary discharge information and education reviewed with patient before signing necessary paperwork. IV discontinued with catheter in tact, shelter monitor removed and returned, all patient belongings packed up and sent with patient. Patient left in private vehicle with his . Addendum: 03/29/20 at 1231 by Radha Gilman RN No Rx sent to [facility]
== END 2020-03-29 12:42 | disposition home health service (06) | DRG 45 ==
LOC: ER 18:29 → ED HOLD 22:18 → PCU 3S 23:55
PROVIDERS: ADMIT Internal Medicine; ATTEND Family Medicine
PROC: 5A09457 Assistance with Respiratory Ventilation, 24-96 Consecutive Hours, Continuous Positive Airway Pressure (ICD-10-PCS; 2020-03-22)
PROC: B32T1ZZ Computerized Tomography (CT Scan) of Left Pulmonary Artery using Low Osmolar Contrast (ICD-10-PCS; principal; 2020-03-24)
PROC: B3201ZZ Computerized Tomography (CT Scan) of Thoracic Aorta using Low Osmolar Contrast (ICD-10-PCS; 2020-03-24)
PROC: B32S1ZZ Computerized Tomography (CT Scan) of Right Pulmonary Artery using Low Osmolar Contrast (ICD-10-PCS; 2020-03-24)
PROC: 4A02XM4 Measurement of Cardiac Total Activity, External Approach (ICD-10-PCS; 2020-03-26)
PROC: 3E073KZ Introduction of Other Diagnostic Substance into Coronary Artery, Percutaneous Approach (ICD-10-PCS; 2020-03-26)
DX: I63.9 Cerebral infarction, unspecified (principal); I13.0 Hypertensive heart and chronic kidney disease with heart failure and stage 1 through stage 4 chronic kidney disease, or unspecified chronic kidney disease; E11.22 Type 2 diabetes mellitus with diabetic chronic kidney disease; E66.2 Morbid (severe) obesity with alveolar hypoventilation; E78.5 Hyperlipidemia, unspecified; J96.21 Acute and chronic respiratory failure with hypoxia; E86.9 Volume depletion, unspecified; E87.2 Acidosis; E87.5 Hyperkalemia; F17.200 Nicotine dependence, unspecified, uncomplicated; G89.4 Chronic pain syndrome; I26.99 Other pulmonary embolism without acute cor pulmonale; E03.9 Hypothyroidism, unspecified; I42.0 Dilated cardiomyopathy; I50.23 Acute on chronic systolic (congestive) heart failure; J20.9 Acute bronchitis, unspecified; J44.0 Chronic obstructive pulmonary disease with (acute) lower respiratory infection; E11.40 Type 2 diabetes mellitus with diabetic neuropathy, unspecified; J44.1 Chronic obstructive pulmonary disease with (acute) exacerbation; D68.59 Other primary thrombophilia; Z20.828 Contact with and (suspected) exposure to other viral communicable diseases; G93.40 Encephalopathy, unspecified; M19.90 Unspecified osteoarthritis, unspecified site; N17.9 Acute kidney failure, unspecified; N18.9 Chronic kidney disease, unspecified; Z79.890 Hormone replacement therapy; Z79.899 Other long term (current) drug therapy; Z91.19 Patient's noncompliance with other medical treatment and regimen; Z68.37 Body mass index [BMI] 37.0-37.9, adult; Z99.81 Dependence on supplemental oxygen; Z79.82 Long term (current) use of aspirin
CPT/HCPCS: 36415; 36600; 70450; 70544; 70551; 71045; 71275; 78452; 80053; 80061; 80305; 80320; 81001; 82140; 82728; 82803; 82948; 83036; 83605; 83615; 83735; 83880; 84100; 84145; 84439; 84443; 84484; 85007; 85018; 85025; 85379; 85384; 85651; 86140; 86703; 86705; 86706; 86709; 86803; 87040; 87081; 87340; 87635; 92508; 92616; 93005; 93017; 93306; 93308; 93880; 93970; 94640; 94660; 94760; 96365; 96375; 97110; 97116; 97162; 97530; 99285; A9500; C9803; G0378; J0456; J0696; J1650; J1815; J1940; J2270; J2405; J2930; J7030; J7060; J7512; Q9967

== ENCOUNTER 2021-03-02 12:42 | Outpatient (CLI) | payer MEDICAID ==
[~2021-03-02 12:42] MED LIST changes: -ALPR-624 PO; +ASPI-1475 PO; +ATOR20TA66 PO; -ATROVENT HFA NEB; +COR3.125T PO; -CYCL-1 PO; +ENOX100S3 SUBCUT; +HYDR-3686 PO; +HYDR4TAB55 PO; +IPRA3AMP9 NEB; -LEVO137T2 PO; +LEVO25TA7 PO; -LISI40TA4 PO; +LOSA100T57 PO; +MORP-92 PO; -ONDA4TAB6 PO; -OXYC30TA PO; +PANT-47 PO; +PRED10TA PO; -SERT50TA PO; +SPIR25TA PO; -TEMA30CA5 PO; -TRIA15CR61 TP; +UMEC1DIS; -[UNRECOGNIZED DRUG - CODE] PO
== END 2021-03-02 23:59 | disposition home or self-care (01) ==
LOC: CARD DIAG 12:42
PROVIDERS: ATTEND Family Medicine
DX: I08.8 Other rheumatic multiple valve diseases (principal)
CPT/HCPCS: 93306